=== PATIENT | male | born 1995 | race Caucasian/White ===

== ENCOUNTER 2024-11-13 14:53 | Emergency (ER) | payer MEDICAID, SELFPAY ==
--- NOTE | 2024-11-13 15:00 | RT.EKG_ITS ---
APPROVED REPORT Exam: Resting ECG Reason for Exam: tachycardia Patient Location: E HR:135 bpm ECG Measurements Heart Rate 135 AXIS AL 132 P 54 QRSd 81 QRS 43 QT 289 T -5 QTc 434 Conclusion Sinus tachycardia...rate> 99
[2024-11-13 15:05] VITALS: BP 152/101; PULSE 137; RESP 18; TEMP 36.8; O2SAT 97
--- NOTE | 2024-11-13 15:18 | ED.GENADUL_ITS ---
Discharge Plan Disposition Patient Disposition: Home Condition: Stable Discharge Details Chief Complaint: Orthopedic Clinical Impression: Left knee sprain Primary Care Provider: None,None ED Provider: Jorge A Garcia Home Meds and New Rx's Prescriptions: No Action No Known Home Meds Discharge Instructions Additional Instructions: Your x-ray did not show any broken bones but you do have a small joint effusion. Follow-up with your primary care provider as you may need to have a follow-up MRI. You can have 1000 mg of acetaminophen and 600 mg of ibuprofen every 6 tika rs as needed. If you feel more ill or have severe worsening pain or new symptoms such as high fevers return to the emergency department for reevaluation. HPI General Mode of arrival: ambulatory . Date/Time Provider Initiated Documentation: 11/13/24 14:59 . Limitations to Documentation: no limitations . Information obtained by: patient . History of Present Illness 29 year old M presents to the emergency department with the chief complaint of left knee pain, described as moderate, and is localized to the left and lower extremity. Patient reports no radiation. Patient started experiencing this week(s) (2) and it has been constant. Rest improves symptom(s), Movement worsens symptoms . Patient notes no other symptoms.. Patient did receive the following treatments prior to arrival, NSAID Related Data Home Medications ?Medication ?Instructions ?Recorded ?Confirmed Unknown [No Known Home Meds] 06/27/13 11/13/24 Allergies Allergy/AdvReac Type Severity Reaction Status Date / Time No Known Allergies Allergy Unverified 11/13/24 15:10 General Stated Complaint: Orthopedic EMEKA: 3 Review of Systems All systems reviewed & are unremarkable except as noted in HPI and below Constitutional Constitutional: Denies chills, Denies fever(s) and Denies weakness Cardiovascular Cardiovascular: Denies chest pain and Denies dyspnea Respiratory Respiratory: Denies cough and Denies dyspnea Gastrointestinal Gastrointestinal: Denies abdominal pain and Denies vomiting Musculoskeletal Musculoskeletal: Reports arthralgias Neurologic Neurologic: Denies weakness Exam Const General: no acute distress Orientation: alert [facility] Head: normal to inspection Ears: external ears normal General nose exam: external nose normal Mouth: moist mucous membranes Eyes General: appearance normal, both eyes and all related structures Neck Neck: normal visual inspection Resp Effort & Inspection: normal respiratory effort and able to speak in complete sentences Cardio Rate: regular rate Skin General skin exam: no rashes or lesions noted Neuro General: patient alert and patient oriented x3 Extrem General: normal to inspection, full ROM and capillary refill normal Psych Mental Status: mental status grossly normal Course Vital Signs Vital signs: Vital Signs Temperature 36.8 C 11/13/24 15:05 Pulse 137 H 11/13/24 15:05 Respiratory Rate 18 11/13/24 15:05 Blood Pressure 152/101 H 11/13/24 15:05 Pulse Oximetry 97 11/13/24 15:05 Temperature 36.8 C 11/13/24 15:05 Pulse 137 H 11/13/24 15:05 Respiratory Rate 18 11/13/24 15:05 Blood Pressure 152/101 H 11/13/24 15:05 Pulse Oximetry 97 11/13/24 15:05 Oxygen Delivery Method Room Air 11/13/24 15:05 Oxygen Flow Rate 0 11/13/24 15:05 Medical Decision Making 29-year-old male who denies any chronic medical problems comes in with left knee pain. He says started 2 weeks ago when he was stepping on a treadmill and twisted his left knee. He did not fall or sustain other injuries. His pain is slowly been improving but still has pain so came here for evaluation. He was noted to be tachycardic and triage and states that he has anxiety and states feels anxious being here and does appear mildly anxious. His heart rate on my exam currently is 98, his left knee is mildly swollen, he has full range of motion of the knee. There is no warmth or erythema. He has tenderness over the medial and lateral joint lines. I suspect strain versus meniscus injury versus ligamentous injury but will obtain x-rays to evaluate for possible fracture. X-ray shows no fractures but does have a joint effusion. Suspect meniscus versus ligamentous injury. He is stable. I will provide him with a hinged knee brace and he will follow-up with his PCP for potential MRI. Return precautions given Differential Diagnosis Differential Diagnosis: Sprain, strain, meniscus injury, anxiety ECG Data Attestation: I personally reviewed and interpreted this ECG (s) as follows: Prior ECG tracings: available for review Interpretation: Sinus tachycardia, rate 130, no STEMI Quality:SDOH Health Related Social Needs: No Data to Display PFSH All Active Problems (Updated 11/13/24 @ 16:22 by Jorge A Garcia MD) Left knee sprain (Acute) Social History Smoking/Tobacco Use Status: Current every day Tobacco Type: cigarettes Years smoked: 15 Smoking risk assessment performed?: Yes Alcohol Intake: current Alcohol Intake frequency: a few times a month Alcohol type: beer Drug use: Daily Substance use type: marijuana Details: Last THC 11/12/2024 Housing: apartment Do you feel safe at home: Yes Do you feel safe in your relationship?: Yes
--- NOTE | 2024-11-13 15:52 | DI.RAD_ITS ---
Exam(s) XR KNEE LT 3V AP,LAT,ZION EXAM: XR KNEE LT 3V AP,LAT,ZION CLINICAL HISTORY: pain s/p twisting while jumping on trampoline. TECHNIQUE: 2D digital imaging was performed. COMPARISON: No exams were available for comparison FINDINGS: 3 views No evidence of acute fracture but there does appear to be a joint effusion. No joint space narrowing . Bone density normal. No osseous lesions nor erosions. IMPRESSION: No acute osseous finding but there does appear to be a joint effusion which signifies a presence of a probable internal derangement. Consider follow-up MRI. DATA REPOSITORY: RADIATION DOSE DELIVERED:
[2024-11-13 16:57] VITALS: BP 142/97; PULSE 88; RESP 16; O2SAT 98
== END 2024-11-13 16:58 | disposition home or self-care (01) ==
PROVIDERS: Emergency Provider Emergency Medicine
DX: S83.92XA Sprain of unspecified site of left knee, initial encounter (principal); M25.462 Effusion, left knee; F17.210 Nicotine dependence, cigarettes, uncomplicated; R00.0 Tachycardia, unspecified; X50.9XXA Other and unspecified overexertion or strenuous movements or postures, initial encounter; Y93.A1 Activity, exercise machines primarily for cardiorespiratory conditioning; Y92.89 Other specified places as the place of occurrence of the external cause
CPT/HCPCS: 73562; 93005; 99284; 93010

== ENCOUNTER 2025-04-01 11:58 | Emergency (ER) | payer MEDICAID, SELFPAY ==
[2025-04-01 12:05] VITALS: BP 154/106; PULSE 94; RESP 18; TEMP 36.8; O2SAT 98
[2025-04-01 12:12] VITALS: BP 154/106; PULSE 94; RESP 18; TEMP 36.8; O2SAT 98
[2025-04-01 12:55] LABS: Abs Immature Grans 0.08 10^3/uL (0.0-0.06); HCT 43.2 % (40.0-50.0); HGB 14.6 g/dL (13.5-17.5); Immature Grans % 0.6 %; MCH 31.3 pg (27.0-33.0); MCHC 33.8 % (32.0-36.0); MCV 93 fL (80-95); MPV 9.2 fL (8.0-11.0); Platelet Count 243 10^3/uL (130-400); RBC 4.66 10^6/uL (4.36-5.78); RDW 12.4 % (11.8-14.1); RDW-SD 42.1 fL; WBC 12.76 10^3/uL (4.4-10.8)
[2025-04-01] MEDS: Normal Saline 1,000 ML 1000 ML IV (13:01)
--- NOTE | 2025-04-01 13:04 | DI.CT_ITS ---
Exam(s) CT NECK W EXAM: CT NECK W CLINICAL HISTORY: dog bite right cheek, concern for abscess. TECHNIQUE: Imaging Protocol: Axial computed tomography images with coronal and sagittal reformatted images were created and reviewed CONTRAST MATERIAL: Intravenous: Omnipaque 350 Contrast volume:100 ml contrast COMPARISON: No exams were available for comparison FINDINGS: Parotids: Normal. Submandibular glands: Normal. Thyroid gland: Normal. Lymph nodes: There are scattered lymph nodes seen along the level one to level three all measuring less than 8 mm in short axis diameter which are physiologic in nature. Carotids arteries: No significant stenosis or dissection. Vertebral arteries: No significant stenosis or dissection. Soft tissues: The floor the mouth is unremarkable. The tonsils and adenoids are unremarkable. There is soft tissue swelling of the right cheek extending from the inferior aspect of the maxillary sinus through the through the inferior mandible. There is mild thickening of the right platysma muscle. There is no drainable abscess or abnormal gas collection. The epiglottis and vocal cords are within normal limits. Lungs: Images through both lung apices are unremarkable. Bones: No evidence of fracture. The alignment is normal. No degenerative changes. Visualized portions of the brain and orbits: Unremarkable. Sinuses and mastoids: Clear. IMPRESSION: Right-sided facial swelling. No evidence of abscess or foreign body The preliminary [facility] report was reviewed. RADIATION DOSE DELIVERED: Total DLP DATA REPOSITORY: All CT scans at this facility are submitted to the National Radiology Data Registry (NRDR) Dose Index Registry (DIR) with the [employer] (ACR). RADIATION OPTIMIZATION: All CT scans at this facility use at least one of these dose optimization techniques: automated exposure control; mA and/or kV adjustment per patient size (includes targeted exams where dose is matched to clinical indication); or iterative reconstruction.
[2025-04-01] MEDS: Ketorolac 15 MG/ML VIAL IVP (13:11)
[2025-04-01] MEDS: AMPICILLIN/SULBACTAM 3 GM in Normal Saline 100 ML IVPB (13:11)
[2025-04-01] MEDS: ACETAMINOPHEN 1,000 MG/100 ML BAG 400 MG IVPB (13:11)
[2025-04-01] MEDS: Tetanus & Diphtheria Tox,ADULT 0.5 ML VIAL IM (13:15)
[2025-04-01 13:17] LABS: ALT 70 U/L (16-63); AST 33 U/L (15-37); Albumin 4.1 g/dL (3.4-5.0); Alkaline Phosphatase 86 U/L (46-116); Anion Gap 9.7 mmol/L (3-11); BUN 10 mg/dL (7-18); Bilirubin, Total 0.5 mg/dL (0.2-1.0); CO2 27.3 mmol/L (21.0-32.0); Calcium 9.4 mg/dL (8.5-10.1); Chloride 101 mmol/L (98-107); Estimated GFR 127.91 (mL/min/1.73m2); Glucose 103 mg/dL (74-106); Potassium 3.8 mmol/L (3.5-5.1); Sodium 138 mmol/L (136-145); Total Protein 8.3 g/dL (6.4-8.2)
[2025-04-01] MEDS: Normal Saline Flush 10 ML SYR IVP (14:04)
[2025-04-01] MEDS: Normal Saline - Diluent 50 ML VIAL IJ (14:09)
[2025-04-01] MEDS: Omnipaque 350 MG/ML 100 ML BTL IJ (14:09)
--- NOTE | 2025-04-01 14:36 | W.ED.GENAD ---
Discharge Plan Disposition Patient Disposition: Home Discharge Details Clinical Impression: Dog bite of face Primary Care Provider: None,None ED Provider: De Pollard Home Meds and New Rx's Prescriptions: New acetaminophen [Tylenol] 325 mg tablet 975 mg PO ONCE PRNQty: 60 0RF ibuprofen 600 mg tablet 600 mg PO Q6H PRNQty: 30 0RF amoxicillin-pot clavulanate 875-125 mg tablet 1 tab PO BID Qty: 14 0RF Discharge Instructions Instructions: Taking care of bruises, Animal Bites ED Additional Instructions: Please take the prescribed antibiotics as directed their entirety. If you develop any worsening facial pain, swelling, difficulty breathing, difficulty opening your mouth, or any other new or concerning symptoms such as fever or chills, please report back to the emergency department for further evaluation Please follow-up with your primary care provider regarding your visit to the emergency department today. Be sure to discuss results of all test performed here today to include radiology, and laboratory testing as well as results for any pending cultures. Should your symptoms worsen, or if you develop new concerning symptoms, please return immediately emergency department for further evaluation. HPI General Date/Time Provider Initiated Documentation: 04/01/25 12:21. HPI Narrative: MDM/Narrative: Initial Assessment: Dog bite on right cheek with tenderness and erythema extending to right anterior neck. No palpable fluctuance, stridor, or intraoral lesions. No fever, chills, nausea, vomiting, or difficulty breathing. Dog fully vaccinated against rabies. Differential Diagnosis: - Retained foreign body: Possible due to dog bite. - Abscess formation: Possible due to swelling and tenderness. Plan: CT scan to rule out abscess, IV antibiotics. - Facial cellulitis - Traumatic contusion of face ED Course: - CT neck soft tissue with IV contrast - IV antibiotics administered - Anti-inflammatory medications administered 1541 On reassessment patient notes significant proving of his symptoms following ministration of Toradol and Ofirmev. Results shared with the patient who is in agreement with plan for discharge on Augmentin for prophylaxis, and return for any new or worsening symptoms. Clinical Impression: - Dog bite - Traumatic contusion of face Disposition: Home This document was created with assistance from [employer] The patient consented to its use. HPI: The patient, a male with a history of a canine bite, presents with pain and edema. The canine bite occurred on 03/30/2025 at 1800 hours. Initially, the patient experienced mild pain, which exacerbated following a shower. The wound was cleansed with running water, isopropyl alcohol, and hydrogen peroxide. The patient reports no pyrexia or chills. Edema has been persistent since 03/31/2025. The dog is fully vaccinated against rabies. The patient is able to open his jaw to three fingerbreadths, experiencing pain localized to one side. He denies any dental issues, oral hemorrhage, or dyspnea. The pain is rated at 5/10, and no analgesics have been administered. ROS: Negative besides as mentioned above Exam: Vital signs: Reviewed. General Appearance: Alert and oriented. No acute distress. HEENT: No intraoral lesions, no stridor. Neck: Tender right cheek extending to right anterior neck, no palpable fluctuance, tenderness and erythema throughout. Respiratory: No Respiratory distress. No tachypnea. Cardiovascular: RRR, no edema. Gastrointestinal: Soft, nondistended, No rebound tenderness. Skin: 3 well-healed puncture wounds over right cheek within chin line. Neurological: Normal Gait, Grossly intact. Psychiatric: Appropriate for situation. Rhythm: NSR Rate: [] [place]: Normal axis Intervals: Normal intervals Other findings: No acute ST segment or T wave changes to suggest acute ischemia. Labs: Laboratory Tests Range/Units 04/01/25 12:45 WBC (4.4-10.8) 10^3/uL 12.76 H RBC (4.36-5.78) 10^6/uL 4.66 Hgb (13.5-17.5) g/dL 14.6 Hct (40.0-50.0) % 43.2 MCV (80-95) fL 93 MCH (27.0-33.0) pg 31.3 MCHC (32.0-36.0) % 33.8 RDW (11.8-14.1) % 12.4 Plt Count (130-400) 10^3/uL 243 MPV (8.0-11.0) fL 9.2 Immature Gran % % 0.6 Neutrophils % % 72.6 Lymphocytes % % 16.4 Monocytes % % 6.7 Eosinophils % % 3.4 Basophils % % 0.3 Nucleated RBC % (0.0-0.3) % 0.0 Absolute Neutrophils (1.2-6.7) 10^3/uL 9.26 H Absolute Lymphocytes (1.2-3.4) 10^3/uL 2.09 Absolute Monocytes (0.1-0.8) 10^3/uL 0.85 H Absolute Eosinophils (0.0-0.7) 10^3/uL 0.43 Absolute Basophils (0.0-0.2) 10^3/uL 0.04 VBG Lactate (<or=2.0) mmol/L 0.9 Sodium (136-145) mmol/L 138 Potassium (3.5-5.1) mmol/L 3.8 Chloride (98-107) mmol/L 101 Carbon Dioxide (21.0-32.0) mmol/L 27.3 Anion Gap (3-11) mmol/L 9.7 BUN (7-18) mg/dL 10 Creatinine (0.70-1.30) mg/dL 0.7 Est GFR (CKD-EPI 2020) (mL/min/1.73m2) 127.91 Glucose (74-106) mg/dL 103 Calcium (8.5-10.1) mg/dL 9.4 Total Bilirubin (0.2-1.0) mg/dL 0.5 AST (15-37) U/L 33 ALT (16-63) U/L 70 H Alkaline Phosphatase (46-116) U/L 86 Total Protein (6.4-8.2) g/dL 8.3 H Albumin (3.4-5.0) g/dL 4.1 Radiology: PROCEDURE INFORMATION: Exam: CT Neck With Contrast Exam date and time: 04/01/2025 2:02 PM Age: 30 years old Clinical indication: Other: Dog bite right cheek, concern for abscess TECHNIQUE: Imaging protocol: Computed tomography of the neck with contrast. Contrast material: OMNIPAQUE 350; Contrast volume: 100 ml; Contrast route: INTRAVENOUS (IV); COMPARISON: No relevant prior studies available. FINDINGS: Salivary glands: Normal. Glands are normal in size. Pharynx: Unremarkable. No significant tonsillar enlargement. Larynx: Unremarkable. Epiglottis is normal. Thyroid: Normal. No enlarged or calcified nodules. Trachea: Visualized trachea is unremarkable. Lungs: Unremarkable as visualized. Lymph nodes: Unremarkable. No lymphadenopathy. Bones/joints: Unremarkable. No acute fracture. Soft tissues: Right cheek swelling/infiltration without discrete collection or mass. No radiopaque foreign body. Abnormal thickening of the right platysma muscle with small fluid extending into the right submandibular space. IMPRESSION: Right cheek swelling/infiltration. No discrete hematoma/collection. No radiopaque foreign body Thank you for allowing us to participate in the care of your patient Related Data Home Medications ?Medication ?Instructions ?Recorded ?Confirmed acetaminophen 325 mg tablet 975 mg (3 x 325 mg) PO ONCE PRN 04/01/25 (Tylenol) #60 tabs amoxicillin 875 mg-potassium 1 tab PO BID #14 tabs 04/01/25 clavulanate 125 mg tablet ibuprofen 600 mg tablet 600 mg PO Q6H PRN #30 tabs 04/01/25 Previous Rx's ?Medication ?Instructions ?Recorded acetaminophen 325 mg tablet 975 mg (3 x 325 mg) PO ONCE PRN 04/01/25 (Tylenol) #60 tabs amoxicillin 875 mg-potassium 1 tab PO BID #14 tabs 04/01/25 clavulanate 125 mg tablet ibuprofen 600 mg tablet 600 mg PO Q6H PRN #30 tabs 04/01/25 Allergies Allergy/AdvReac Type Severity Reaction Status Date / Time No Known Allergies Allergy Unverified 04/01/25 12:14 General Stated Complaint: AnimalBite EMEKA: 3 Course Vital Signs Vital signs: Vital Signs Temperature 36.8 C 04/01/25 12:05 Pulse 94 H 04/01/25 12:05 Respiratory Rate 18 04/01/25 12:05 Blood Pressure 154/106 H 04/01/25 12:05 Pulse Oximetry 98 04/01/25 12:05 Temperature 36.8 C 04/01/25 12:12 Temperature Source Oral 04/01/25 12:12 Pulse 94 H 04/01/25 12:12 Respiratory Rate 18 04/01/25 12:12 Blood Pressure 154/106 H 04/01/25 12:12 Blood Pressure Position Sitting 04/01/25 12:12 Pulse Oximetry 98 04/01/25 12:12 Oxygen Delivery Method Room Air 04/01/25 12:12 Oxygen Flow Rate 0 04/01/25 12:05 Pain Level 5 04/01/25 12:05 Lab/Test Results Lab/Test Results: Laboratory Tests Range/Units 04/01/25 12:45 WBC (4.4-10.8) 10^3/uL 12.76 H RBC (4.36-5.78) 10^6/uL 4.66 Hgb (13.5-17.5) g/dL 14.6 Hct (40.0-50.0) % 43.2 MCV (80-95) fL 93 MCH (27.0-33.0) pg 31.3 MCHC (32.0-36.0) % 33.8 RDW (11.8-14.1) % 12.4 Plt Count (130-400) 10^3/uL 243 MPV (8.0-11.0) fL 9.2 Immature Gran % % 0.6 Neutrophils % % 72.6 Lymphocytes % % 16.4 Monocytes % % 6.7 Eosinophils % % 3.4 Basophils % % 0.3 Nucleated RBC % (0.0-0.3) % 0.0 Absolute Neutrophils (1.2-6.7) 10^3/uL 9.26 H Absolute Lymphocytes (1.2-3.4) 10^3/uL 2.09 Absolute Monocytes (0.1-0.8) 10^3/uL 0.85 H Absolute Eosinophils (0.0-0.7) 10^3/uL 0.43 Absolute Basophils (0.0-0.2) 10^3/uL 0.04 VBG Lactate (<or=2.0) mmol/L 0.9 Sodium (136-145) mmol/L 138 Potassium (3.5-5.1) mmol/L 3.8 Chloride (98-107) mmol/L 101 Carbon Dioxide (21.0-32.0) mmol/L 27.3 Anion Gap (3-11) mmol/L 9.7 BUN (7-18) mg/dL 10 Creatinine (0.70-1.30) mg/dL 0.7 Est GFR (CKD-EPI 2020) (mL/min/1.73m2) 127.91 Glucose (74-106) mg/dL 103 Calcium (8.5-10.1) mg/dL 9.4 Total Bilirubin (0.2-1.0) mg/dL 0.5 AST (15-37) U/L 33 ALT (16-63) U/L 70 H Alkaline Phosphatase (46-116) U/L 86 Total Protein (6.4-8.2) g/dL 8.3 H Albumin (3.4-5.0) g/dL 4.1 PFSH All Active Problems (Updated 04/01/25 @ 14:40 by De Pollard MD) Dog bite of face (Acute) Social History Smoking/Tobacco Use Status: Current every day Tobacco Type: cigarettes Years smoked: 15 Smoking risk assessment performed?: Yes Alcohol Intake: current Alcohol Intake frequency: a few times a month Alcohol type: beer Drug use: Daily Substance use type: marijuana Details: Last THC 11/12/2024 Housing: apartment Do you feel safe at home: Yes Do you feel safe in your relationship?: Yes PAWSS Have you Been Recently Intoxicated or Drunk Within the Last 30 days?: Yes Have you Ever Experienced Previous Episodes of Alcohol Withdrawal?: No Have you ever Experienced Withdrawal Seizures?: No Have you ever Experienced Delirium Tremens(DT)s?: No Have you ever undergone Alcohol Rehabilitation Treatment (i.e, inpt ot outpatient treatment programs)?: No Have you ever Experienced Blackouts?: No Have you ever Combined Alcohol with other Downers within the last 90 days?: No Have you ever Combined Alcohol with any other Substance of Abuse during the last 90 days?: No Positive Blood Alcohol level on Presentation? [PCS.BAL]: No Evidence of Increased Autonomic Activity (i.e. HR>120, tremor, sweating, agitation, nausea)?: No Result: 1
--- NOTE | 2025-04-01 15:39 | DI.VRAD_ITS ---
PROCEDURE INFORMATION: Exam: CT Neck With Contrast Exam date and time: 04/01/2025 2:02 PM Age: 30 years old Clinical indication: Other: Dog bite right cheek, concern for abscess TECHNIQUE: Imaging protocol: Computed tomography of the neck with contrast. Contrast material: OMNIPAQUE 350; Contrast volume: 100 ml; Contrast route: INTRAVENOUS (IV); COMPARISON: No relevant prior studies available. FINDINGS: Salivary glands: Normal. Glands are normal in size. Pharynx: Unremarkable. No significant tonsillar enlargement. Larynx: Unremarkable. Epiglottis is normal. Thyroid: Normal. No enlarged or calcified nodules. Trachea: Visualized trachea is unremarkable. Lungs: Unremarkable as visualized. Lymph nodes: Unremarkable. No lymphadenopathy. Bones/joints: Unremarkable. No acute fracture. Soft tissues: Right cheek swelling/infiltration without discrete collection or mass. No radiopaque foreign body. Abnormal thickening of the right platysma muscle with small fluid extending into the right submandibular space. IMPRESSION: Right cheek swelling/infiltration. No discrete hematoma/collection. No radiopaque foreign body Dictated and Authenticated by: Mahesh Cornejo MD. Orderin Atul Kc MD
== END 2025-04-01 16:08 | disposition home or self-care (01) ==
PROVIDERS: Emergency Provider General Practice
DX: S00.87XA Other superficial bite of other part of head, initial encounter (principal); W54.0XXA Bitten by dog, initial encounter
CPT/HCPCS: 99284; 99285; 36415; 90471; 96368; 96375; 70491; 80053; 90714; 96365; 96366; 83605; 85025; J0131; J0295; J1885; J3490

== ENCOUNTER 2025-04-27 13:23 | Emergency (ER) | payer MEDICAID, SELFPAY ==
[2025-04-27 13:32] VITALS: BP 149/105; PULSE 69; RESP 18; TEMP 35.4; O2SAT 96
[2025-04-27 13:35] VITALS: BP 149/105; PULSE 69; RESP 18; TEMP 35.4; O2SAT 96
[2025-04-27 14:51] LABS: Abs Immature Grans 0.07 10^3/uL (0.0-0.06); HCT 42.7 % (40.0-50.0); HGB 14.5 g/dL (13.5-17.5); Immature Grans % 0.8 %; MCH 30.9 pg (27.0-33.0); MCHC 34.0 % (32.0-36.0); MCV 91 fL (80-95); MPV 9.4 fL (8.0-11.0); Platelet Count 225 10^3/uL (130-400); RBC 4.69 10^6/uL (4.36-5.78); RDW 12.1 % (11.8-14.1); RDW-SD 40.3 fL; WBC 9.02 10^3/uL (4.4-10.8)
[2025-04-27 15:09] LABS: ALT 79 U/L (10-49); AST 47 U/L (<34); Albumin 4.7 g/dL (3.4-5.0); Alkaline Phosphatase 71 U/L (46-116); Anion Gap 9.3 mmol/L (3-11); BUN 14 mg/dL (9-23); Bilirubin, Total 0.70 mg/dL (0.2-1.2); CO2 27.7 mmol/L (20.0-31.0); Calcium 10.1 mg/dL (8.3-10.6); Chloride 105 mmol/L (98-107); Glucose 105 mg/dL (74-106); Potassium 3.7 mmol/L (3.5-5.1); Sodium 142 mmol/L (136-145); Total Protein 7.9 g/dL (5.7-8.2)
--- NOTE | 2025-04-27 15:37 | DI.CT_ITS ---
Exam(s) CT FACIAL W EXAM: CT FACIAL W CLINICAL HISTORY: dog bite 1mo ago, complete abx, swelling rt face. TECHNIQUE: Imaging Protocol: Axial computed tomography images with coronal and sagittal reformatted images were created and reviewed CONTRAST MATERIAL: Intravenous: Omnipaque 350 Contrast volume:100 ml contrast route:IV - COMPARISON: No exams were available for comparison FINDINGS: Facial Bones: No fracture is noted in the facial bones. Sinuses and Mastoids: Small mucous retention cyst in the right maxillary sinus. Globes, extraocular muscles, optic nerves and retrobulbar fat: Normal. Upper aerodigestive tract: Normal. Mandible and bilateral temporomandibular joints: Normal. Soft tissues: Edema is again noted the subcutaneous fat of the right anterolateral face. No drainable abscess or fluid collection. The parotid and submandibular glands are unremarkable. IMPRESSION: No evidence of small soft tissue abscess or fluid collection. Persistent mild edema in the right side of the face. RADIATION DOSE DELIVERED: Total DLP DATA REPOSITORY: All CT scans at this facility are submitted to the National Radiology Data Registry (NRDR) Dose Index Registry (DIR) with the [place] [employer] (ACR). RADIATION OPTIMIZATION: All CT scans at this facility use at least one of these dose optimization techniques: automated exposure control; mA and/or kV adjustment per patient size (includes targeted exams where dose is matched to clinical indication); or iterative reconstruction.
[2025-04-27] MEDS: Normal Saline - Diluent 50 ML VIAL IJ (15:39)
[2025-04-27] MEDS: Omnipaque 350 MG/ML 100 ML BTL IJ (15:40)
[2025-04-27] MEDS: Normal Saline Flush 10 ML SYR IVP (15:40)
[2025-04-27 15:43] VITALS: BP 142/97; PULSE 64; TEMP 36.3
--- NOTE | 2025-04-27 15:55 | ED.GENADUL_ITS ---
Discharge Plan Disposition Patient Disposition: Home Condition: Stable Discharge Details Clinical Impression: Dog bite of face, Swelling of right side of face, HTN (hypertension), Elevated LFTs Primary Care Provider: None,None ED Provider: Ashok Reyes Home Meds and New Rx's Prescriptions: Continued acetaminophen [Tylenol] 325 mg tablet 975 mg PO ONCE PRNQty: 60 0RF ibuprofen 600 mg tablet 600 mg PO Q6H PRNQty: 30 0RF Discharge Instructions Instructions: High Blood Pressure ED Additional Instructions: CT imaging of the face reveals no abscess or fluid collection. Please follow-up with your primary care physician. Call Wednesday to arrange timely follow-up in 1 to 2 weeks. Your blood pressure was elevated today. You note this has been elevated in the past. Please discuss this with your doctor. Additional outpatient diagnostic testing and treatment is indicated. Your liver function test were slightly elevated today. Be sure to have this trended by your primary care physician. Additional outpatient diagnostic testing may be necessary. Return to the emergency department immediately for any worsening or new concern ing symptoms including increased inflammation like redness, warmth, pain of your face. Stand Alone Forms: Portal Information Discharge Data Discharge Date/Time-TO BE ENTERED AT DEPARTURE: 04/27/25 16:21 HPI General Mode of arrival: ambulatory . Date/Time Provider Initiated Documentation: 04/27/25 14:01 . Limitations to Documentation: no limitations . Information obtained by: patient . HPI Narrative: HISTORY OF PRESENT ILLNESS This is a 30-year-old male with a history of high blood pressure presenting with a lump on the right side of his face 1 month after dog bite to the face complicated by infection, associated nausea and fatigue. The patient reports being bitten in the face by a dog on 03/30/2025. He sought medical attention 2 days later, and a CT scan revealed potential fluid accumulation, which was draining. The wound became infected, characterized by pus, significant bleeding, and oozing, leading to a visit to urgent care. He was advised to continue antibiotic therapy. He has since completed prolonged course of Augmentin yesterday. He reports a persistent hard spot that is palpable right cheek. An ultrasound conducted approximately 2 weeks ago showed no concerning fluid accumulation. He describes the area as hard, occasionally painful, and unchanged in appearance. He has been experiencing nausea for the past week. He reports no epistaxis. He received a tetanus vaccine on 04/01/2025 and was administered IV Tylenol and antibiotics. He has been on Augmentin 875 mg twice daily for a month, which he completed yesterday. The patient has high blood pressure but is not on any medications for it. The patient smokes cigarettes. Related Data Home Medications Medication Instructions Recorded Confirmed acetaminophen 325 mg tablet 975 mg (3 x 325 mg) PO ONC E PRN 04/01/25 04/27/25 (Tylenol) #60 tabs ibuprofen 600 mg tablet 600 mg PO Q6H PRN #30 tabs 1 04/27/25 Previous Rx's Medication Instructions Recorded acetaminophen 325 mg tablet 975 mg (3 x 325 mg) PO ONC E PRN 04/01/25 (Tylenol) #60 tabs ibuprofen 600 mg tablet 600 mg PO Q6H PRN #30 tabs 1 Allergies Allergy/AdvReac Type Severity Reaction Status Date / Time No Known Allergies Allergy Unverified 04/27/25 13:34 General Stated Complaint: GenMedical EMEKA: 3 Exam Const General: cooperative and no acute distress Nutritional Appearance: well nourished Orientation: alert and awake [facility] Head: normocephalic and atraumatic General nose exam: external nose normal Face and sinus: face asymmetric, no crepitus, no ecchymosis, no erythema, no fluctuance, tenderness on the right (Cheek) and other (Right cheek appears slightly swollen compared to left. ) Mouth: moist mucous membranes Eyes Conjunctivae: normal conjunctivae Sclera: normal sclerae EOM: EOM intact bilaterally Neck Neck: no lymphadenopathy, trachea midline and supple Resp Auscultation: clear to auscultation bilaterally, no rales, no rhonchi and no wheezes Cardio Rate: regular rate and not tachycardic Rhythm: regular rhythm Skin General skin exam: no rashes or lesions noted Neuro General: patient alert, patient awake, patient oriented x3 and tone normal Course Vital Signs Vital signs: Vital Signs Temperature 35.4 C L 04/27/25 13:32 Pulse 69 04/27/25 13:32 Respiratory Rate 18 04/27/25 13:32 Blood Pressure 149/105 H 04/27/25 13:32 Pulse Oximetry 96 04/27/25 13:32 Temperature 36.3 C L 04/27/25 15:43 Temperature Source Tympanic 04/27/25 15:43 Pulse 64 04/27/25 15:43 Pulse Rhythm Regular 04/27/25 15:43 Pulse Strength Normal 04/27/25 15:43 Respiratory Rate 18 04/27/25 13:35 Respiratory Effort Normal 04/27/25 14:49 Respiratory Depth Normal 04/27/25 14:49 Respiratory Pattern Normal 04/27/25 14:49 Blood Pressure 142/97 H 04/27/25 15:43 Blood Pressure Mean 112 04/27/25 15:43 Pulse Oximetry 96 04/27/25 13:35 Oxygen Delivery Method Room Air 04/27/25 15:43 Oxygen Flow Rate 0 04/27/25 15:43 Pain Level 0 04/27/25 15:43 Lab/Test Results Lab/Test Results: Laboratory Tests Range/Units 04/27/25 14:45 WBC (4.4-10.8) 10^3/uL 9.02 RBC (4.36-5.78) 10^6/uL 4.69 Hgb (13.5-17.5) g/dL 14.5 Hct (40.0-50.0) % 42.7 MCV (80-95) fL 91 MCH (27.0-33.0) pg 30.9 MCHC (32.0-36.0) % 34.0 RDW (11.8-14.1) % 12.1 Plt Count (130-400) 10^3/uL 225 MPV (8.0-11.0) fL 9.4 Immature Gran % % 0.8 Neutrophils % % 60.6 Lymphocytes % % 25.9 Monocytes % % 7.2 Eosinophils % % 4.9 Basophils % % 0.6 Nucleated RBC % (0.0-0.3) % 0.0 Absolute Neutrophils (1.2-6.7) 10^3/uL 5.47 Absolute Lymphocytes (1.2-3.4) 10^3/uL 2.34 Absolute Monocytes (0.1-0.8) 10^3/uL 0.65 Absolute Eosinophils (0.0-0.7) 10^3/uL 0.44 Absolute Basophils (0.0-0.2) 10^3/uL 0.05 Sodium (136-145) mmol/L 142 Potassium (3.5-5.1) mmol/L 3.7 Chloride (98-107) mmol/L 105 Carbon Dioxide (20.0-31.0) mmol/L 27.7 Anion Gap (3-11) mmol/L 9.3 BUN (9-23) mg/dL 14 Creatinine (0.73-1.18) mg/dL 0.8 Est GFR (CKD-EPI 2020) (mL/min/1.73m2) 115.90 Glucose (74-106) mg/dL 105 Calcium (8.3-10.6) mg/dL 10.1 Total Bilirubin (0.2-1.2) mg/dL 0.70 AST (<34) U/L 47 H ALT (10-49) U/L 79 H Alkaline Phosphatase (46-116) U/L 71 Total Protein (5.7-8.2) g/dL 7.9 Albumin (3.4-5.0) g/dL 4.7 Medical Decision Making ASSESSMENT AND PLAN Initial Assessment: 30-year-old male with a dog bite to the face 1 month ago, presenting with a persistent lump on the right side of the face, nausea, vomiting, and fatigue over the past week. Tetanus up-to-date. Dogs rabies shots up-to-date. Differential Diagnosis: - Consider abscess - Persistent infection: No warmth, redness, or fluctuation; firm swelling likely scar tissue; discomfort raises possibility; plan to order blood work and CT scan with contrast. - Side effects of amoxicillin-clavulanate: Known to cause nausea; prolonged use could be contributing to symptoms. ED Course: - Blood work ordered. - CT scan with contrast ordered to assess for deep space infection was interpreted by radiology: No evidence of small soft tissue abscess or fluid collection. Persistent mild edema in the right side of the face. - Labs reviewed and no leukocytosis. Mild transaminitis of unclear etiology noted. - Results discussed with the patient. Plan for discharge with close outpatient follow-up for reassessment. Clinical Impression: - Dog bite injury to the face with suspected scar tissue. - Nausea, likely secondary to antibiotic use. - Hypertension. Disposition: - Follow-Up: Follow up with primary doctor for further evaluation and management. This document was written with the assistance of FRANCIA Martines. The patient consented to its use. Lab Data Lab results reviewed: Yes I reviewed the patient's lab results. Labs: Laboratory Tests Range/Units 04/27/ 14:45 WBC (4.4-10.8) 10^3/uL 9.02 RBC (4.36-5.78) 10^6/uL 4.69 Hgb (13.5-17.5) g/dL 14.5 Hct (40.0-50.0) % 42.7 MCV (80-95) fL 91 MCH (27.0-33.0) pg 30.9 MCHC (32.0-36.0) % 34.0 RDW (11.8-14.1) % 12.1 Plt Count (130-400) 10^3/uL 225 MPV (8.0-11.0) fL 9.4 Immature Gran % % 0.8 Neutrophils % % 60.6 Lymphocytes % % 25.9 Monocytes % % 7.2 Eosinophils % % 4.9 Basophils % % 0.6 Nucleated RBC % (0.0-0.3) % 0.0 Absolute Neutrophils (1.2-6.7) 10^3/uL 5.47 Absolute Lymphocytes (1.2-3.4) 10^3/uL 2.34 Absolute Monocytes (0.1-0.8) 10^3/uL 0.65 Absolute Eosinophils (0.0-0.7) 10^3/uL 0.44 Absolute Basophils (0.0-0.2) 10^3/uL 0.05 Sodium (136-145) mmol/L 142 Potassium (3.5-5.1) mmol/L 3.7 Chloride (98-107) mmol/L 105 Carbon Dioxide (20.0-31.0) mmol/L 27.7 Anion Gap (3-11) mmol/L 9.3 BUN (9-23) mg/dL 14 Creatinine (0.73-1.18) mg/dL 0.8 Est GFR (CKD-EPI 2020) (mL/min/1.73m2) 115.90 Glucose (74-106) mg/dL 105 Calcium (8.3-10.6) mg/dL 10.1 Total Bilirubin (0.2-1.2) mg/dL 0.70 AST (<34) U/L 47 H ALT (10-49) U/L 79 H Alkaline Phosphatase (46-116) U/L 71 Total Protein (5.7-8.2) g/dL 7.9 Albumin (3.4-5.0) g/dL 4.7 PFSH All Active Problems (Updated 05/02/25 @ 00:04 by ELIUD NOLAN) Elevated LFTs (Acute) Swelling of right side of face (Acute) HTN (hypertension) (Chronic) Social History Smoking/Tobacco Use Status: Current every day Tobacco Type: cigarettes Years smoked: 15 Smoking risk assessment performed?: Yes Alcohol Intake: current Alcohol Intake frequency: a few times a month Alcohol type: beer Drug use: Daily Substance use type: marijuana Details: Last THC 11/12/2024 Housing: apartment Do you feel safe at home: Yes Do you feel safe in your relationship?: Yes PAWSS Have you Been Recently Intoxicated or Drunk Within the Last 30 days?: No Have you Ever Experienced Previous Episodes of Alcohol Withdrawal?: No Have you ever Experienced Withdrawal Seizures?: No Have you ever Experienced Delirium Tremens(DT)s?: No Have you ever undergone Alcohol Rehabilitation Treatment (i.e, inpt ot ou tpatient treatment programs)?: No Have you ever Experienced Blackouts?: No Have you ever Combined Alcohol with other Downers within the last 90 days?: No Have you ever Combined Alcohol with any other Substance of Abuse during the last 90 days?: No Positive Blood Alcohol level on Presentation? [PCS.BAL]: No Evidence of Increased Autonomic Activity (i.e. HR>120, tremor, sweating, agitation, nausea)?: No Result: 0
[2025-04-27 16:15] VITALS: BP 154/95; PULSE 74; RESP 16; O2SAT 98
== END 2025-04-27 16:21 | disposition home or self-care (01) ==
PROVIDERS: Emergency Provider Student in an Organized Health Care Education/Training Program
DX: S01.85XD Open bite of other part of head, subsequent encounter (principal); W54.0XXD Bitten by dog, subsequent encounter; R22.0 Localized swelling, mass and lump, head; I10 Essential (primary) hypertension
CPT/HCPCS: 99284 ×2; 80053; 70487; 85025; J3490